=== PATIENT | female | born 1945 | race Caucasian/White ===

== ENCOUNTER 2018-01-18 00:56 | Inpatient (IN) | payer MEDICARE ==
[~2018-01-18] VITALS: Ht 157.5 cm; Wt 70.3 kg
[2018-01-18] VITALS (16 sets, daily range): BP systolic 94–184; BP diastolic 56–86
[~2018-01-18 00:56] MED LIST: FOLI20CA2 PO; METH2.5T43 PO
[2018-01-18] MEDS ORDERED: fentaNYL CITR 100 MCG/2 ML AMP ONE ×3 (11:42→16:50)
[2018-01-18] MEDS ORDERED: ROCURONIUM BROM 10 MG/ML 10 ML ONE (11:43)
[2018-01-18] MEDS ORDERED: DEXAMETHASONE SOD PHOS 10MG/ML ONE (11:43)
[2018-01-18] MEDS ORDERED: ONDANSETRON 4 MG/2 ML VIAL ONE (11:43)
[2018-01-18] MEDS ORDERED: PROPOFOL EMUL(*) 10MG/ML 20 ML 20 ML ONE (11:43)
[2018-01-18] MEDS ORDERED: LIDOCAINE MPF 1% 5 ML VIAL ONE (11:43)
[2018-01-18] MEDS ORDERED: MIDAZOLAM 2 MG/2 ML VIAL IVP PRN (12:00)
[2018-01-18] MEDS ORDERED: LIDOCAINE/SOD BICARB 8.4% SYR ID ONE (12:00)
[2018-01-18] MEDS ORDERED: ceFAZolin(*) 2GM/D5W 50ML 50 ML IVPB ONE (12:00)
[2018-01-18] MEDS ORDERED: PREGABALIN 75 MG CAPSULE PO ONE (12:00)
[2018-01-18] MEDS ORDERED: FAMOTIDINE 20 MG TAB PO ONE (12:00)
[2018-01-18] MEDS ORDERED: ACETAMINOPHEN 500 MG TAB PO ONE (12:00)
[2018-01-18] MEDS ORDERED: NORMOSOL R SOLN(*) 1000 ML BAG 1,000 ML IV PRN (12:00)
[2018-01-18] MEDS ORDERED: PHENYLEPHRINE 10 MG/1 ML VIAL ONE (14:01)
[2018-01-18] MEDS ORDERED: SUGAMMADEX SOD 500 MG/5 ML SDV ONE (15:35)
[2018-01-18] MEDS ORDERED: NS 0.9% IRRIGATION 1000ML PLCT IR ONE (15:39)
--- NOTE | 2018-01-18 15:47 | RADIOLOGY IMAGING REPORT ---
[facility] PATIENT NAME: Holly Bacon : 1945 MR: [id number] V: [id number] EXAM DATE: ORDERING PHYSICIAN: SKYE KIM TECHNOLOGIST: Location: [facility] Patient: Holly Bacon : 1945 Visit/Account:[id number] Date of Sevice: 01/18/2018 Exam type: LUMBAR SPINE 1 VIEW History: L3-S1 LAMINECTOMIES Comparison: None Findings: A single cross table lateral prone view of the lumbar spine was submitted. Metallic probe projects o holly the posterior spinous process of L4. Spondylotic changes L5-S1. Sponge marker projects over the dorsal soft tissues on this intraoperative study. IMPRESSION: 1. As above Report Dictated By: Cheri Ascencio MD at 01/18/2018 3:42 PM Report E-Signed By: Cheri Ascencio MD at 01/18/2018 3:43 PM WSN:[email or web address]
[2018-01-18] MEDS ORDERED: HYDROmorphone HCL 2 MG/ML SDV ONE (16:24)
--- NOTE | 2018-01-18 16:26 | OPERATIVE REPORT 1 ---
EVENT DATE: January 18, 2018 SURGEON: Roni Erwin MD ANESTHESIOLOGIST: Toby Lees MD ANESTHESIA: General endotracheal anesthesia. ALUMNI SECRETARY: Joey Garcia PA-C PREOPERATIVE DIAGNOSIS Lumbar spinal stenosis with right greater than left radiculopathy and neurogenic claudication. POSTOPERATIVE DIAGNOSIS Lumbar spinal stenosis with right greater than left radiculopathy and neurogenic claudication. PROCEDURE PERFORMED L3 to S1 laminectomy. INTRAVENOUS FLUIDS 1900 mL ESTIMATED BLOOD LOSS 125 mL IMPLANTS USED None. SPECIMENS None. DRAINS None. COMPLICATIONS Incidental durotomy. DISPOSITION: Post-anesthesia care unit. INDICATIONS FOR SURGERY Ms. Sousa is a 72-year-old female who presented with the chief complaint of right lower extremity radiating pain, numbness, and tingling primarily in L5 and S1 distributions. In addition to this, she noted heaviness and tiredness in her legs with any prolonged walking, thus limiting her walking tolerance. She failed physical therapy, medications, activity modifications, and presented to my clinic with essentially a normal physical examination, but with an MRI that showed significant spinal stenosis in the lateral recess at L3-L4, L4-L5, and L5-S1. Secondary to ongoing symptoms with failure of nonoperative treatment , Ms. Sousa was offered and elected to undergo surgical intervention in the form of L3 to S1 laminectomy. Prior to surgery, I explained in detail to the patient the possible risks of surgery. These risks included bleeding, infection, damage to surrounding structures, nerve root injury, spinal fluid leak, infection and/or meningitis, , blindness, sexual dysfunction, autonomic nervous system dysfunction, persistent and/or worsening pain, need for further surgery, and other unforeseen medical and surgical complications. An understanding that spinal surgery is more predictive at improving extremity discomfort than axial spine pain was stressed. DESCRIPTION OF PROCEDURE On the date of surgery, the patient was met in the preoperative hold area, and all questions were answered. The operative site was identified and marked by myself. The patient was brought in good condition to the operating room, and after succumbing to anesthesia, was positioned in the prone position on a Stefan table. All bony protuberances and soft tissues were well padded in the standard fashion. Care was taken to maintain appropriate perfusion pressures during anesthesia. Preoperative antibiotics were administered according to the appropriate timing schedule. At the conclusion of the procedure, sponge and needle counts were correct times two. Final timeout was undertaken by members of the operating team to confirm correct patient, correct levels, and correct surgery. An incision was made over the intended surgical levels, and sharp dissection was carried out down to the posterior elements. A lateral radiograph was obtained to confirm correct spinal levels. Soft tissues were elevated off the posterior elements in a subperiosteal manner, exposing the spinous processes and laminae of L3, L4, L5 and top of S1. A self-retaining retractor was placed and distracted. Leksell rongeurs and a [place] bone cutter were used to remove the spinous processes of L3, L4, and L5. The lamina was thinned down the midline with a combination of Leksell rongeurs and a high-speed travis. A curette was used to undermine the inferior insertion of the ligamentum flavum from the inferior aspect of the L5 lamina. The canal was thusly entered, and the Yarnell elevator was used to separate any dural adhesions from surrounding bone and soft tissue prior to use of the Kerrison punch. A midline decompression was performed using 4.0 Kerrison and the high-speed travis. Bilateral lateral recess decompressions were then performed again using 3.0 and 4.0 Kerrison rongeurs. As we were completing the decompression at the L5-S1 level, a small subarachnoid cyst was noted. This began leaking spinal fluid with manipulation of the dura, and therefore, we packed it off. We completed the bilateral lateral recess and foraminal decompression and then turned our attention to repair of the durotomy. A 6-0 [place]-Tyrese suture was used to place two stitches through the durotomy. These were tied down with a hand tie, and spinal fluid leakage stopped at that point. We went ahead, however, and patched the area with a Durogen patch and then filled the laminectomy defect with DuraSeal. No further spinal fluid leakage was noted once the sutures had been placed. The wound was irrigated with copious sterile saline solution and then closed in layers using interrupted sutures for the deep fascia, inverted interrupted sutures for the subcutaneous tissue, and then a running subcuticular skin stitch. Sponge and needle counts were correct times two. POSTOPERATIVE CARE PLAN Ms. Sousa will remain flat in bed until about lunchtime tomorrow. We will then gradually sit her up to ensure that she has no persistent CSF leak. She will then follow typical postop protocol and will follow up with me postoperatively two weeks after surgery for wound check and examination. CROW
[2018-01-18] MEDS ORDERED: ACETAMINOPHEN 500 MG TAB PO PRN (16:40)
[2018-01-18] MEDS ORDERED: FLUSH 10 ML SYR IVP PRN (16:40)
[2018-01-18] MEDS ORDERED: LR(*) 1000 ML BAG 1,000 ML IV PRN (16:40)
[2018-01-18] MEDS ORDERED: ACETAMINOPHEN(*)1000 MG/100 ML 100 ML IVPB PRN (16:40)
[2018-01-18] MEDS ORDERED: ONDANSETRON 4 MG/2 ML VIAL IVP PRN (16:40)
[2018-01-18] MEDS ORDERED: HYDROmorphone HCL 2 MG/ML SDV IVP PRN (16:40)
[2018-01-18] MEDS ORDERED: BISACODYL 10 MG SUPP PR PRN (16:40)
[2018-01-18] MEDS ORDERED: BENZOCAINE/MENTHOL 1 EACH LOZG PO PRN (16:40)
[2018-01-18] MEDS ORDERED: diphenhydrAMINE 25 MG CAP PO PRN (16:40)
[2018-01-18] MEDS ORDERED: MAGNESIUM HYDROXIDE* 30ML UDCP PO PRN (16:40)
--- NOTE | 2018-01-18 19:19 | Hospitalist Consultation ---
History of Present Illness Requesting Physician Dr. Erwin Reason for Consult Rheumatoid arthritis History of Present Illness This patient was admitted for lumbar surgery. It is reported that a dural leak developed during the procedure. History Problems: (1) RA (rheumatoid arthritis) Home Meds Reported Medications Methotrexate Sodium (METHOTREXATE) 2.5 Mg Tablet, 15 MG PO QWEEK 01/11/18 Folic Acid (FOLIC ACID) 20 Mg Capsule, 1 CAP PO QDAY, CAPSULE 01/11/18 Discontinued Reported Medications Methotrexate Sodium (METHOTREXATE) 2.5 Mg Tablet, 2.5 MG PO QWEEK 01/11/18 Allergies: Coded Allergies: No Known Drug Allergies (Unverified , 01/11/18) Patient History: FH: heart disease FATHER MOTHER Hx Smoking: Yes Smoking Status: Former Smoker Caffeine Intake: Tea Caffeine/Cups Per Day: 2 CPD Hx Alcohol Use: No Hx Substance Use Disorder: No Review of Systems All Systems Reviewed/Normal: Yes Exam Vital Signs Vital Signs Date Time Temp Pulse Resp B/P (MAP) Pulse Ox O2 Delivery O2 Flow Rate FiO2 01/18/18 18:16 114/56 (75) 01/18/18 18:00 52 95 Nasal Cannula 3.0 01/18/18 17:41 97.5 12 Neuro: No Gross deficits Eyes: PERRLA Cardiovascular: Regular Rate and Rhythm Respiratory: Clear to Auscultation GI: Abd Soft and Non-Tender Extremities: No Edema Assessment and Plan Problems: (1) RA (rheumatoid arthritis) Assessment & Plan: She is on chronic therapy with methotrexate and folic acid. Venous Thromboembolism Antithrombotics Is Pt On Any Antithrombotics?: No Exam Sepsis Risk: No Definite Risk SURJIT SOSA DO Jan 18, 2018 19:19
[2018-01-18] MEDS: DIAZEPAM 5 MG TAB PO PRN (19:51)
[2018-01-18] MEDS: DOCUSATE SODIUM 100 MG CAP PO SCH (20:37)
[2018-01-18] MEDS: ceFAZolin(*) 2GM/D5W 50ML 50 ML IVPB SCH (22:08)
[2018-01-19] MEDS: oxyCODONE HCL 5 MG CAP PO PRN ×2 (01:50→05:48)
[2018-01-19] MEDS: DIAZEPAM 5 MG TAB PO PRN ×2 (02:51→20:55)
[2018-01-19 05:38] VITALS: BP 112/64
[2018-01-19] MEDS: ceFAZolin(*) 2GM/D5W 50ML 50 ML IVPB SCH ×2 (05:40→14:24)
[2018-01-19 07:20] VITALS: BP 119/55
[2018-01-19] MEDS: DOCUSATE SODIUM 100 MG CAP PO SCH ×2 (08:35→20:55)
[2018-01-19] MEDS: FOLIC ACID 1 MG TAB PO SCH (08:35)
--- NOTE | 2018-01-19 08:53 | Hospitalist Progress Note ---
Subjective Progress Notes Subjective She has no complaints this morning. She had no acute events overnight. Patient Complains of: Cardiovascular: No: Chest Pain Respiratory: No: Shortness of Breath Physical Exam Vital Signs Date Time Temp Pulse Resp B/P (MAP) Pulse Ox O2 Delivery O2 Flow Rate FiO2 01/19/18 05:38 98.2 69 112/64 (80) 93 Nasal Cannula 2.0 01/18/18 19:32 16 General Appearance: Alert, Awake, No Acute Distress, Afebrile Neuro: No Gross deficits Cardiovascular: Regular Rate and Rhythm Respiratory: No Respiratory Distress, Clear to Auscultation Extremities: Perfused, No Edema Psych: Alert & Oriented X3, Appropriate Mood & Affect Assessment and Plan Problems: (1) RA (rheumatoid arthritis) Assessment & Plan: She is on chronic therapy with methotrexate on Fridays weekly and folic acid daily. Exam Sepsis Risk: No Definite Risk BRANDI BAGLEY SHOE CASER Jan 19, 2018 08:53
[2018-01-19 11:00] VITALS: BP 116/55
[2018-01-19 11:06] VITALS: Ht 157.5 cm; Wt 70.3 kg
[2018-01-19 15:22] VITALS: BP 117/55
[2018-01-19 18:45] VITALS: BP 125/54
[2018-01-19] MEDS: APAP/HYDROCODONE 325/5 TAB PO PRN (20:55)
[2018-01-19 23:39] VITALS: BP 105/48
[2018-01-20 03:52] VITALS: BP 125/53
[2018-01-20] MEDS: DIAZEPAM 5 MG TAB PO PRN (06:38)
[2018-01-20] MEDS: APAP/HYDROCODONE 325/5 TAB PO PRN (06:39)
[2018-01-20 07:11] VITALS: BP 112/66
[2018-01-20] MEDS ORDERED: LOR5/325 PO (07:47)
[2018-01-20] MEDS ORDERED: DOCU240C84 PO (07:47)
[2018-01-20] MEDS ORDERED: DIAZ-303 PO (07:49)
[2018-01-20] MEDS: FOLIC ACID 1 MG TAB PO SCH (09:24)
[2018-01-20] MEDS: DOCUSATE SODIUM 100 MG CAP PO SCH (09:24)
--- NOTE | 2018-01-20 10:01 | Hospitalist Progress Note ---
Subjective Progress Notes Subjective She has no complaints this morning. She states she is ready to go home. Patient Complains of: Cardiovascular: No: Chest Pain Respiratory: No: Shortness of Breath Physical Exam Vital Signs Date Time Temp Pulse Resp B/P (MAP) Pulse Ox O2 Delivery O2 Flow Rate FiO2 01/20/18 07:21 96 Nasal Cannula 1.0 01/20/18 07:11 97.8 59 17 112/66 (81) Intake and Output 01/21/18 01:00 Intake Total 240 ml Balance 240 ml Intake Oral 240 ml # Voids 1 General Appearance: Alert, Awake, No Acute Distress, Afebrile Neuro: No Gross deficits Cardiovascular: Regular Rate and Rhythm Respiratory: No Respiratory Distress, Clear to Auscultation Extremities: Perfused, No Edema Psych: Alert & Oriented X3, Appropriate Mood & Affect Assessment and Plan Problems: (1) RA (rheumatoid arthritis) Assessment & Plan: She is on chronic therapy with methotrexate on Fridays weekly and folic acid daily. Exam Sepsis Risk: No Definite Risk BRANDI BAGLEY Jan 20, 2018 10:01
== END 2018-01-20 12:36 | disposition home or self-care (01) | DRG 519 ==
LOC: OR 00:56 → MED 17:35
PROVIDERS: ADMIT Orthopaedic Surgery; ATTEND Orthopaedic Surgery
PROC: 00UT0KZ Supplement Spinal Meninges with Nonautologous Tissue Substitute, Open Approach (ICD-10-PCS; 2018-01-18)
PROC: 01NB0ZZ Release Lumbar Nerve, Open Approach (ICD-10-PCS; principal; 2018-01-18 13:53)
DX: M48.062 Spinal stenosis, lumbar region with neurogenic claudication (principal); G97.41 Accidental puncture or laceration of dura during a procedure; M51.17 Intervertebral disc disorders with radiculopathy, lumbosacral region; M06.9 Rheumatoid arthritis, unspecified; Z87.891 Personal history of nicotine dependence; Y84.8 Other medical procedures as the cause of abnormal reaction of the patient, or of later complication, without mention of misadventure at the time of the procedure; Z79.899 Other long term (current) drug therapy
CPT/HCPCS: 36415; 72020; 86850; 86900; 86901; 97161; C1763; J0690; J1100; J1170; J2001; J2370; J2405; J2704; J3010; J7120